=== PATIENT | male | born 1975 | race Two or more races ===

== ENCOUNTER 2021-01-19 10:12 | Emergency (ER) | payer SELFPAY ==
[~2021-01-19] VITALS: Ht 172.7 cm; Wt 63.6 kg
[2021-01-19] MEDS ORDERED: predniSONE 10 MG TABLET PO ONE (10:45)
[2021-01-19] MEDS ORDERED: ACETAMINOPHEN 500 MG TABLET PO ONE (10:45)
[2021-01-19] MEDS ORDERED: CALCIUM GLUCONATE 1,000 MG/10 ML VIAL. IVP STA (10:53)
--- NOTE | 2021-01-19 11:04 | PHYS DOC ---
General Adult EDM: Chief Complaint: MULTIPLE COMPLAINTS HPI: HPI: Patient is a 45 year old male with no significant medical history who presents the ED today complaining of body aches, chills, slight right upper quadrant pain, symptoms began this morning. Patient denies any nausea, vomiting or diarrhea. Denies any chest pain or shortness of breath. Patient reports his girl friend has COVID-19. (ROOSEVELT AMBRIZ APRN) Review of Systems: Review of Systems: Constitutional: Reports body aches and chills. Denies fever Eyes: Denies change in visual acuity. [] HENT: Denies nasal congestion or sore throat. [] Respiratory: Denies cough or shortness of breath. [] Cardiovascular: Denies chest pain or edema. [] GI: Denies abdominal pain, nausea, vomiting, bloody stools or diarrhea. [] : Denies dysuria. [] Musculoskeletal: Denies back pain or joint pain. [] Integument: Denies rash. [] Neurologic: Denies headache, focal weakness or sensory changes. [] Psychiatric: Denies depression or anxiety. [] (ROOSEVELT AMBRIZ FLOWER ARRANGER) Heart Score: C/O Chest Pain: N/A Risk Factors: Risk Factors: DM, Current or recent (<one month) smoker, HTN, HLP, family history of CAD, obesity. Risk Scores: Score 0 - 3: 2.5% MACE over next 6 weeks - Discharge Home Score 4 - 6: 20.3% MACE over next 6 weeks - Admit for Clinical Observation Score 7 - 10: 72.7% MACE over next 6 weeks - Early Invasive Strategies (ROOSEVELT AMBRIZ APRN) Current Medications: Current Medications Medications (Trade) Dose Ordered Sig/[place] Start Time Stop Time Status Last Admin Dose Admin Acetaminophen (Tylenol) 1,000 mg 1X ONCE 01/19/21 10:45 01/19/21 10:46 UNV Calcium Gluconate (Calcium Gluconate) 1,000 mg 1X STAT 01/19/21 10:53 01/19/21 10:54 UNV Prednisone (Prednisone) 50 mg 1X ONCE 01/19/21 10:45 01/19/21 10:46 UNV (ROOSEVELT AMBRIZ APRN) Physical Exam: PE: Constitutional: Well developed, well nourished, no acute distress, non-toxic appearance. [] HENT: Normocephalic, atraumatic, bilateral external ears normal, oropharynx moist, no oral exudates, nose normal. [] Eyes: PERRLA, EOMI, conjunctiva normal, no discharge. [] Neck: Normal range of motion, no tenderness, supple, no stridor. [] Cardiovascular:Heart rate regular rhythm, no murmur [] Lungs & Thorax: Bilateral breath sounds clear to auscultation [] Abdomen: Bowel sounds normal, soft, no tenderness, no masses, no pulsatile masses. [] Skin: Warm, dry, no erythema, no rash. [] Back: No tenderness, no CVA tenderness. [] Extremities: No tenderness, no cyanosis, no clubbing, ROM intact, no edema. [] Neurologic: Alert and oriented X 3, normal motor function, normal sensory function, no focal deficits noted. [] Psychologic: Affect normal, judgement normal, mood normal. [] (ROOSEVELT AMBRIZ APRN) Current Patient Data: Labs: Laboratory Tests Test 01/19/21 10:40 01/19/21 10:50 01/19/21 10:57 SARS-CoV-2 Antigen (Rapid) Positive (NEGATIVE) White Blood Count 5.1 x10^3/uL (4.0-11.0) Red Blood Count 4.79 x10^6/uL (4.30-5.70) Hemoglobin 15.6 g/dL (13.0-17.5) Hematocrit 45.0 % (39.0-53.0) Mean Corpuscular Volume 94 fL (79-100) Mean Corpuscular Hemoglobin 33 pg (25-35) Mean Corpuscular Hemoglobin Concent 35 g/dL (31-37) Red Cell Distribution Width 13.8 % (11.5-14.5) Platelet Count 146 x10^3/uL (140-400) Neutrophils (%) (Auto) 70 % (31-73) Lymphocytes (%) (Auto) 10 % (24-48) Monocytes (%) (Auto) 16 % (0-9) Eosinophils (%) (Auto) 3 % (0-3) Basophils (%) (Auto) 1 % (0-3) Neutrophils # (Auto) 3.6 x10^3/uL (1.8-7.7) Lymphocytes # (Auto) 0.5 x10^3/uL (1.0-4.8) Monocytes # (Auto) 0.8 x10^3/uL (0.0-1.1) Eosinophils # (Auto) 0.1 x10^3/uL (0.0-0.7) Basophils # (Auto) 0.0 x10^3/uL (0.0-0.2) Sodium Level 132 mmol/L (136-145) Potassium Level 4.2 mmol/L (3.5-5.1) Chloride Level 98 mmol/L (98-107) Carbon Dioxide Level 30 mmol/L (21-32) Anion Gap 4 (6-14) Blood Urea Nitrogen 12 mg/dL (8-26) Creatinine 0.9 mg/dL (0.7-1.3) Estimated GFR (Cockcroft-Gault) 90.4 BUN/Creatinine Ratio 13 (6-20) Glucose Level 104 mg/dL (70-99) Calcium Level 8.9 mg/dL (8.5-10.1) Magnesium Level 2.0 mg/dL (1.8-2.4) Total Bilirubin 0.5 mg/dL (0.2-1.0) Aspartate Amino Transf (AST/SGOT) 73 U/L (15-37) Alanine Aminotransferase (ALT/SGPT) 81 U/L (16-63) Alkaline Phosphatase 54 U/L (46-116) Troponin I Quantitative < 0.017 ng/mL (0.000-0.055) EI-Jwi-C-Type Natriuretic Peptide 145 pg/mL (0-124) Total Protein 8.1 g/dL (6.4-8.2) Albumin 3.7 g/dL (3.4-5.0) Albumin/Globulin Ratio 0.8 (1.0-1.7) Lipase 152 U/L (73-393) Ethyl Alcohol Level < 10 mg/dL (0-10) Urine Collection Type Unknown Urine Color Yellow Urine Clarity Clear Urine pH 6.5 (<5.0-8.0) Urine Specific [place] 1.015 (1.000-1.030) Urine Protein Negative mg/dL (NEG-TRACE) Urine Glucose (UA) Negative mg/dL (NEG) Urine Ketones (Stick) Negative mg/dL (NEG) Urine Blood Negative (NEG) Urine Nitrite Negative (NEG) Urine Bilirubin Negative (NEG) Urine Urobilinogen Dipstick 2.0 mg/dL (0.2 mg/dL) Urine Leukocyte Esterase Negative (NEG) Urine RBC 0 /HPF (0-2) Urine WBC 0 /HPF (0-4) Urine Squamous Epithelial Cells Occ /LPF Urine Bacteria 0 /HPF (0-FEW) Urine Opiates Screen Neg (NEG) Urine Methadone Screen Neg (NEG) Urine Barbiturates Neg (NEG) Urine Phencyclidine Screen Neg (NEG) Urine Amphetamine/Methamphetamine Neg (NEG) Urine Benzodiazepines Screen Neg (NEG) Urine Cocaine Screen Neg (NEG) Urine Cannabinoids Screen Neg (NEG) Urine Ethyl Alcohol Neg (NEG) Vital Signs: Vital Signs Date Time Temp Pulse Resp B/P (MAP) Pulse Ox O2 Delivery O2 Flow Rate FiO2 01/19/21 10:25 98.3 98 20 161/88 99 Room Air 98.3 (RICK MARTINEZ DO) EKG: EK interpreted by Dr. Chavis sinus rhythm heart rate 93 peaked T waves noted on multiple leads on the EKG. No STEMI. (ROOSEVELT AMBRIZ M FLOWER ARRANGER) Radiology/Procedures: Radiology/Procedures: []PROCEDURE: ABDOMEN LTD EXAM: Abdomen sonogram. HISTORY: Right upper quadrant pain and elevated enzymes laboratory values. TECHNIQUE: Sonographic imaging of the abdomen was performed. COMPARISON: None. FINDINGS: The liver is upper normal in size. The liver parenchyma is slightly echogenic. No focal hepatic lesion is seen. The gallbladder is unremarkable. The common bile duct is normal in caliber. The pancreas is obscured due to bowel gas. The right kidney and inferior vena cava are unremarkable. IMPRESSION: 1. Upper normal liver size and slightly echogenic liver parenchyma, the latter which can be seen with mild hepatic steatosis. 2. No acute sonographic finding. Electronically signed by: Ayesha Gold MD (01/19/2021 12:25 PM) [id number] DICTATED and SIGNED BY: AYESHA GOLD MD DATE: 01/19/21 [id number] PROCEDURE: CHEST AP ONLY EXAM: Chest, single view. HISTORY: Chills. COMPARISON: None. FINDINGS: A frontal view of the chest is obtained. There is no infiltrate, pleural effusion or pneumothorax. There are suspected basilar atelectasis or scarring. The heart is normal in size. IMPRESSION: No acute pulmonary finding. Electronically signed by: Ayesha Gold MD (01/19/2021 11:25 AM) [id number] DICTATED and SIGNED BY: AYESHA GOLD MD DATE: 01/19/21 [id number] (ROOSEVELT AMBRIZ APRN) Course & Med Decision Making: Course & Med Decision Making Pertinent Labs and Imaging studies reviewed. (See chart for details) This is a 45-year-old male patient presenting to the ED today complaining of chills, body aches, slight right upper quadrant pain, symptoms began this morning, girlfriend has COVID-19. EKG noted for peaked T waves, Dr. Martinez requested we give patient calcium. CBC with nothing really acute, CMP with AST of 75, ALT of 81. Right upper quadrant ultrasound is negative for any acute findings, noted for enlarged liver. UA is negative, chest x-ray is negative Positive for COVID-19. Discharged home with supportive care measures. (ROOSEVELT AMBRIZ APRN) Course & Med Decision Making I have participated in the care of this patient and I have reviewed and agree with all pertinent clinical information above including history, exam, and recommendations. Rick Martinez DO (RICK MARTINEZ DO) Bretn Disclaimer: Brent Disclaimer: This electronic medical record was generated, in whole or in part, using a voice recognition dictation system. (ROOSEVELT AMBRIZ APRN) Departure Departure Impression: Primary Impression: Lab test positive for detection of COVID-19 virus Disposition: HOME / SELF CARE / HOMELESS Condition: STABLE Patient Instructions: Viral Exanthems, Adult Additional Instructions: You have COVID-19. Please quarantine yourself for 10 days. Please push fluids. Take Tylenol or Motrin for pain. Maintain good hand hygiene. Wear your mask when you are around other people. Come back to the ED at any point symptoms worsen ROOSEVELT AMBRIZ APRN Jan 19, 2021 11:04 RICK MARTINEZ DO Jan 19, 2021 13:39
[2021-01-19 11:19] LABS: BASO % 1 % (0-3); EOS # 0.1 x10^3/uL (0.0-0.7); EOS % 3 % (0-3); HEMOGLOBIN 15.6 g/dL (13.0-17.5); LYMPH # 0.5 x10^3/uL (1.0-4.8); LYMPH % 10 % (24-48); MEAN CORPUSCULAR HEMOGLOBIN 33 pg (25-35); MEAN CORPUSCULAR HGB CONC 35 g/dL (31-37); MEAN CORPUSCULAR VOLUME 94 fL (79-100); MONO # 0.8 x10^3/uL (0.0-1.1); MONO % 16 % (0-9); NEUT # 3.6 x10^3/uL (1.8-7.7); NEUT % 70 % (31-73); PLATELET COUNT 146 x10^3/uL (140-400); RED BLOOD COUNT 4.79 x10^6/uL (4.30-5.70); RED CELL DISTRIBUTION WIDTH 13.8 % (11.5-14.5); WHITE BLOOD COUNT 5.1 x10^3/uL (4.0-11.0)
[2021-01-19 11:22] LABS: BILIRUBIN,URINE NEGATIVE (NEG); CLARITY,URINE CLEAR; COLOR,URINE YELLOW; NITRITE,URINE NEGATIVE (NEG); PH,URINE 6.5 (<5.0-8.0); PROTEIN,URINE NEGATIVE (NEG-TRACE)
[2021-01-19 11:27] LABS: BARBITURATES NEG (NEG); BENZODIAZEPINES NEG (NEG); CANNABINOIDS NEG (NEG); COCAINE NEG (NEG); METHADONE NEG (NEG); OPIATES NEG (NEG); PHENCYCLIDINE NEG (NEG)
--- NOTE | 2021-01-19 11:28 | RAD ---
EXAM: Chest, single view. HISTORY: Chills. COMPARISON: None. FINDINGS: A frontal view of the chest is obtained. There is no infiltrate, pleural effusion or pneumo thorax. There are suspected basilar atelectasis or scarring. The heart is normal in size. IMPRESSION: No acute pulmonary finding. Electronically signed by: Ayesha Lester MD (01/19/2021 11:25 AM) [id number]
[2021-01-19 11:29] LABS: CALCIUM 8.9 mg/dL (8.5-10.1); CREATININE 0.9 mg/dL (0.7-1.3); GFR 90.4; POTASSIUM 4.2 mmol/L (3.5-5.1)
[2021-01-19 11:30] LABS: AMPHETAMINE/METHAMPHETAMINE NEG (NEG); BACTERIA,URINE 0 /HPF (0-FEW); RBC,URINE 0 /HPF (0-2); WBC,URINE 0 /HPF (0-4)
[2021-01-19 11:35] LABS: ALBUMIN 3.7 g/dL (3.4-5.0); ALBUMIN/GLOBULIN RATIO 0.8 (1.0-1.7); TOTAL BILIRUBIN 0.5 mg/dL (0.2-1.0); TOTAL PROTEIN 8.1 g/dL (6.4-8.2)
--- NOTE | 2021-01-19 12:28 | RAD ---
EXAM: Abdomen sonogram. HISTORY: Right upper quadrant pain and elevated enzymes laboratory values. TECHNIQUE: Sonographic imaging of the abdomen was performed. COMPARISON: None. FINDINGS: The liver is upper normal in size. The liver parenchyma is slightly echogenic. No focal hep atic lesion is seen. The gallbladder is unremarkable. The common bile duct is normal in caliber. The pancreas is obscured due to bowel gas. The right kidney and inferior vena cava are unremarkable. IMPRESSION: 1. Upper normal liver size and slightly echogenic liver parenchyma, the latter which can be seen with mild hepatic steatosis. 2. No acute sonographic finding. Electronically signed by: Ayesha Lester MD (01/19/2021 12:25 PM) [id number]
[2021-01-19 14:32] VITALS: BP 149/82
== END 2021-01-19 14:50 | disposition home or self-care (01) ==
LOC: ER 10:12
DX: U07.1 COVID-19 (principal)
CPT/HCPCS: 36415; 71045; 76705; 80053; 80307; 81001; 83690; 83735; 83880; 84484; 85025; 87426; 93005; 96374; 99285; G0480; J0610; J7512